=== PATIENT | male | born 1960 | race Caucasian/White ===

== ENCOUNTER 2017-08-15 22:20 | Emergency (ER) | payer OTHER ==
--- NOTE | 2017-08-15 22:32 | ED NEURO DEFICIT/STROKE ---
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 PER EMS PT NODDING TO QUESTIONS UPON THEIR ARRIVAL. PT TAKEN TO CT IMMEDIATLY ON ARRIVAL. DOWN TO CT WITH PATIENT. Triage Nurses Notes Reviewed? yes HPI: Patient had a sudden onset of aphasia and right-sided deficit. EMS was contacted. Patient was brought to the emergency department within 25 minutes of symptoms onset. Patient was taken straight to CAT scan. Patient is aphasic however he will not and she is headed to any internal questions. Patient responds to questions when asked from both sides of the bed. Patient is unable to move his right arm or his right leg. Past History Travel History Traveled to [place] past 21 day No Medical History Any Pertinent Medical History? none Surgical History Surgical History: non-contributory Psychosocial History What is your primary language Kiswahili Tobacco Use: Current Daily Use Daily Tobacco Use Amount/Type: => 5 Cigarettes daily ETOH Use: occasional use Illicit Drug Use: denies illicit drug use Family History Hx Contributory? No Review of Systems Review of Systems Constitutional: Reports: see HPI. Respiratory: Reports: no symptoms. Cardiovascular: Reports: no symptoms. GI: Reports: no symptoms. Musculoskeletal: Reports: no symptoms. Neurological/Psychological: Reports: see HPI. Immunologic/Allergic: Reports: no symptoms. Physical Exam Physical Exam General Appearance: well developed/nourished, alert, awake, anxious, severe distress Head: atraumatic, normal appearance Eyes: Bilateral: PERRL, EOMI. Ears, Nose, Throat: normal ENT inspection, moist mucous membrane, hearing grossly normal Neck: normal inspection, supple, full range of motion Respiratory: normal breath sounds, chest non-tender, no respiratory distress, lungs clear Cardiovascular: regular rate/rhythm, normal peripheral pulses Gastrointestinal: normal bowel sounds, soft, non-tender Back: normal inspection, normal range of motion Extremities: normal range of motion Psychiatric: awake, alert Cranial Nerves: normal hearing, PERRL Motor/Sensory: weak motor strength RUE, weak motor strength RLE Core Measures CVA/TIA Diagnosis: Yes NIH Stroke Scale NIH Stroke Scale Response Value Level of Consciousness alert 0 LOC Questions answers both correctly 0 LOC Commands obeys both correctly 0 Best Gaze normal 0 Visual Gunn no visual loss 0 Facial Paresis minor 1 Motor Arm - Left no drift 0 Motor Arm - Right no movement 4 Motor Leg - Left no drift 0 Motor Leg - Right no movement 4 Limb Ataxia present in two limbs 2 Sensory partial loss 1 Best Language mute 3 Extinction and Inattention no neglect 0 Total 15 Date Last Known Well: 08/15/17 Time Last Known Well: 2144 Symptom Start Date: 08/15/17 Symptom Start Time: 2144 Swallow Evaluation Not Done Sepsis Present: No Sepsis Focused Exam Completed? No Progress Differential Diagnosis: electrolyte imbalance, encephalitis, intracranial Hem., intracranial mass/tumor, seizure disorder, stroke Plan of Care: Orders Procedure Date/time Status XRY-PORTABLE CHEST XRAY 08/16 2231 Active Telemetry/Economic Development Coordinator 08/15 2230 Active URINALYSIS 08/15 2230 Active TROPONIN LEVEL 08/15 2230 Active PARTIAL THROMBOPLASTIN TIME 08/15 2230 Active PROTHROMBIN TIME 08/15 2230 Active COMPREHENSIVE METABOLIC PANEL 08/15 2230 Active CBC WITHOUT DIFFERENTIAL 08/15 2230 Complete EKG 08/[address] HEAD ANGIOGRAM 08/15 2229 Active Current Medications Sig/Suha Start time Last Medication Dose Stop Time Status Admin Alteplase, See Dose BOLUS ONE 08/15 2299 UNir Recombinant Insts (1) 08/15 2300 (Activase 100 MG Inj) Alteplase, See Dose ONCE ONE 08/15 2299 UNir Recombinant Insts (2) 08/15 2300 (Activase 100 MG Inj) Dose Instructions: (1)Alteplase, Recombinant (Activase 100 MG Inj): Administer over one minute (2)Alteplase, Recombinant (Activase 100 MG Inj): Infuse over 60 minutes Laboratory Tests 08/15/17 2250: Sodium Pending, Potassium Pending, Chloride Pending, Carbon Dioxide Pending, Anion Gap Pending, BUN Pending, Creatinine Pending, BUN/Creatinine Ratio Pending , Glucose Pending, Calcium Pending, Total Bilirubin Pending, AST Pending, ALT Pending, Alkaline Phosphatase Pending, Troponin I Pending, Total Protein Pending , Albumin Pending, Globulin Pending, Albumin/Globulin Ratio Pending, PT Pending, INR Pending, APTT Pending, CBC w Diff NO MAN DIFF REQ, RBC 4.62 L, MCV 94.2 H, MCH 32.0 H, MCHC 33.9, RDW 13.4, MPV 8.4, Gran % 40.1 L, Lymphocytes % 46.4, Monocytes % 6.5, Eosinophils % 6.6 H, Basophils % 0.4, Absolute Granulocytes 3.3, Absolute Lymphocytes 3.8 H, Absolute Monocytes 0.5, Absolute Eosinophils 0.5, Absolute Basophils 0, Urine Color Pending, Urine Clarity Pending, Urine pH Pending, Ur Specific [place] Pending, Urine Protein Pending, Urine Ketones Pending, Urine Nitrite Pending, Urine Bilirubin Pending, Urine Urobilinogen Pending, Ur Leukocyte Esterase Pending, Ur Microscopic SEDIMENT EXAMINED, Urine RBC Pending, Urine Hemoglobin Pending, Urine Glucose Pending Diagnostic Imaging: Viewed by Me: Radiology Read, CT Scan. Discussed w/RAD: Radiology Read, CT Scan. Initial ED EKG: NSR, no ST T wave changes Rhythm Strip: normal sinus rhythm Comments: DR. WARD: TPA AND TRANSFER TO [facility], THEY AGREE WITH TREATMENT PLAN Discussed with his brother Goran informed of the patient. In no recent surgery, major bleeds or any other contraindications to TPA. Consent has been signed by his brother and TPA will be administered in transfer [facility]. Departure Departure Disposition: OTHER GENERAL HOSPITAL (ACUTE) Condition: Critical Clinical Impression Primary Impression: Acute CVA (cerebrovascular accident) Referrals: Patient Has No Primary Care Dr (PCP/Family) Departure Forms: Customer Survey General Discharge Information Critical Care Note Critical Care Note Critical Care Time: mins: (60 MIN)
--- NOTE | 2017-08-15 22:39 | CT SCAN REPORT ---
EXAMINATION: CT HEAD WITHOUT CONTRAST CLINICAL INFORMATION: Cerebrovascular accident. COMPARISON: No relevant prior imaging. TECHNIQUE: Contiguous axial imaging was performed from the skull base to vertex without intravenous administration of contrast. DLP: 691.06 mGy-cm FINDINGS: The left middle cerebral artery is asymmetrically hyperdense. This finding most likely represents an acute thrombus within the vessel. Santamaria-white matter differentiation is grossly preserved within the vascular territory of left middle cerebral artery. No acute hemorrhage or abnormal extra-axial collection. No intracranial mass effect or midline shift. Lateral and third ventricles are normal. No hydrocephalus. Santamaria-white matter differentiation remains grossly preserved. The calvarium and skull base are intact. There is mild swelling of the scalp near the vertex. There is near total opacification of the mastoid tip air cells and partial opacification of the middle ear cavities. Paranasal sinuses are well-aerated. IMPRESSION: Hyperdense left middle cerebral artery consistent with acute thrombus in the setting of aphasia and right-sided symptoms. This critical result was discussed with Chino Gimenez at 08/15/2017 10:34 PM and it was ascertained that the content and urgency of the report was understood at the time of direct communication.
[2017-08-15 23:03] LABS: ABSOLUTE BASOPHIL COUNT 0 /CUMM (0.0-0.2); ABSOLUTE EOSINOPHIL COUNT 0.5 /CUMM (0.0-0.7); ABSOLUTE GRANULOCYTE CT 3.3 /CUMM (1.4-6.5); ABSOLUTE LYMPH COUNT 3.8 /CUMM (1.2-3.4); ABSOLUTE MONOCYTE COUNT 0.5 /CUMM (0.10-0.60); BASOPHIL % 0.4 % (0.0-2.0); EOSINOPHIL % 6.6 % (0-5); GRANULOCYTE % 40.1 % (42.2-75.2); HEMATOCRIT 43.5 % (42-52); MEAN CORPUSCULAR HGB CONC 33.9 G/DL (33.0-37.0); MEAN CORPUSCULAR VOLUME 94.2 FL (80.0-94.0); MEAN PLATELET VOLUME 8.4 FL (7.4-10.4); PLATELET COUNT 200 /CUMM (130-400); RBC DISTRIBUTION WIDTH 13.4 % (11.5-14.5); RED BLOOD CELL CT 4.62 /CUMM (4.70-6.10); WHITE BLOOD CELL COUNT 8.2 /CUMM (4.8-10.8)
[2017-08-15 23:10] LABS: PT 11.1 SEC (9.4-12.5); PTT 26 SEC (25-37)
[2017-08-15 23:15] VITALS: BP 138/76
--- NOTE | 2017-08-15 23:18 | CT SCAN REPORT ---
EXAMINATION: CT HEAD AND NECK ANGIOGRAM CLINICAL INFORMATION: Acute right-sided deficit and aphasia. COMPARISON: CT head 08/15/2017. TECHNIQUE: Manufacturing Plant Controller images were obtained. A CT angiogram of the head and neck was performed in the arterial phase after the intravenous administration of 80 mL Optiray 320. Pre and delayed postcontrast images of the head were also obtained. MIP reconstructions were generated in multiple orientations at the acquisition workstation. Multiple three-dimensional surface rendered images and maximum intensity projection images were generated on a dedicated 3-D lab workstation. Arterial stenoses are measured in accordance with NASCET criteria or similar method if applicable. Total exam dose-length product 431.28 mGy-cm FINDINGS: Head: There is no intracranial mass effect or midline shift. No abnormal extra-axial collection. Lateral and third ventricles are normal. No hydrocephalus. Santamaria-white matter differentiation is grossly maintained and there is no evidence of acute territorial infarct at this time. The calvarium and skull base are intact. Mastoid air cells are completely opacified and there is partial opacification of middle ear cavities. Paranasal sinuses are well-aerated with exception of small mucous retention cysts within the alveolar recesses of both maxillary sinuses. Mild swelling of the scalp near the vertex. CT angiogram neck: The aortic arch apex is normal and the origins of major aortic branches are grossly patent. Common carotid arteries are normal. Heavily calcified atheromatous plaque is visualized at both carotid bifurcations. 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 There is no stenosis of the right extracranial internal carotid artery. The cervical segments of the vertebral arteries as well as their origins are widely patent. CT angiogram head: The right intracranial internal carotid artery is patent. There is reconstitution of filling within the supraclinoid segment of the left internal carotid artery. There is a filling defect within the distal M1 segment of the left middle cerebral artery that extends into a few of the posterior sylvian branches of left middle cerebral artery. There is some distal opacification. Anterior cerebral artery complexes are normal. The intradural vertebral artery segments and basilar artery are patent. Posterior cerebral artery complexes are normal. Other: Visualized soft tissues of the neck are unremarkable. Grossly no pathologically enlarged cervical lymph nodes. Lung apices are clear. No acute osseous finding. Degenerative spondylosis at the atlantodental joint and C5-C6. Grossly no evidence of canal compromise. 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 There is also a thrombus within the distal M1 segment of the left middle cerebral artery that extends into a few of the posterior sylvian branches of the left middle cerebral artery. There is some distal opacification that may be related to incomplete occlusion or perhaps good pial collateral circulation. There is some partially calcified atheromatous plaque at the right carotid bifurcation. No stenosis of the right extracranial internal carotid artery. The vertebrobasilar system is patent.
== END 2017-08-15 23:22 | disposition short-term general hospital (02) ==
LOC: ERH 22:20
PROVIDERS: Emergency Medicine
DX: I63.9 Cerebral infarction, unspecified (principal)
CPT/HCPCS: 81001; 87086; 93005; 93010; 96374; 99291